=== PATIENT | female | born 2000 | race Caucasian/White ===

== ENCOUNTER 2019-04-02 09:18 | Emergency (ER) | payer BC ==
[2019-04-02 09:56] VITALS: BP 115/74
--- NOTE | 2019-04-02 10:19 | UC ---
Eye Complaint HPI - HPI Summary HPI Summary: Patient is a 18yo female presenting with R eye redness, tearing, and yellow discharge x3 days. Patient states she was seen at [facility] and told "they couldn't do anything and to drink powerade." Patient states she had similar redness in both eyes 3 weeks ago and was diagnosed with viral conjunctivitis, which she states resolves. Notes some itching at times, but no pain. Denies L eye symptoms, but states it is "starting to feel weird." Denies vision changes. Denies contact lens use. Does note sore throat. Denies other URI symptoms. 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 - History of Current Complaint Chief Complaint: UCEye Stated Complaint: RT EYE COMPLAINT Hx Obtained From: Patient Hx Last Menstrual Period: 03/24 Onset/Duration: Sudden Onset, Lasting Days Timing: Constant Pain Intensity: 0 - Allergies/Home Medications Allergies/Adverse Reactions: Allergies Allergy/AdvReac Type Severity Reaction Status Date / Time Penicillins Allergy Hives Verified 04/02/19 09:58 Home Medications: Home Medications Norethindrone-E.estradiol-Iron [Mibelas 24 Fe 1-20 mg-Mcg(24)] 1 chw PO QPM 08/16 [History Confirmed 04/02/19] [facility] [place] Eye Drop 3 drop RIGHT EYE Q2H PRN 04/02/19 [History Confirmed 04/02/19] PMH/Surg Hx/FS Hx/Imm Hx Previously Healthy: Yes - Surgical History Surgical History: Yes Surgery Procedure, Year, and Place: 2017 wisdom teeth - Family History Known Family History: Positive: Non-Contributory - Social History Occupation: Student Lives: Dormitory/Roommates Alcohol Use: Rare Substance Use Type: None Smoking Status (MU): Never Smoked Tobacco Review of Systems All Other Systems Reviewed And Are Negative: Yes Constitutional: Positive: Negative. Negative: Fever, Chills Eyes: Positive: Drainage - R eye yellow discharge, Eye Redness - right. Negative: Blurred Vision, Diplopia, Photophobia ENT: Positive: Sore Throat. Negative: Ear Ache, Nasal Discharge, Sinus Congestion, Sinus Pain/Tenderness Respiratory: Positive: Negative Cardiovascular: Positive: Negative Neurological: Negative: Headache Physical Exam Triage Information Reviewed: Yes Appearance: Well-Appearing, No Pain Distress, Well-Nourished Vital Signs: Initial Vital Signs Temp 97.7 F 04/02/19 09:47 Pulse 116 04/02/19 09:47 Resp 18 04/02/19 09:47 BP 115/74 04/02/19 09:47 Pulse Ox 99 04/02/19 09:47 Lab Results 04/02/19 Range/Units 10:36 Group A Strep Rapid Negative (Negative) Vital Signs Reviewed: Yes Eye Exam: Other - PERRLA. EOM intact Eyes: Positive: Conjunctiva Inflamed - right eye, Discharge - yellow discharge and crusting with matted lashes R eye. excessive tearing R eye ENT: Positive: Hearing grossly normal, Pharyngeal erythema, TMs normal, Uvula midline. Negative: Nasal congestion, Nasal drainage, Tonsillar swelling, Tonsillar exudate, Sinus tenderness Neck exam: Normal Neck: Positive: Supple, Nontender, No Lymphadenopathy Respiratory Exam: Normal Respiratory: Positive: Lungs clear, Normal breath sounds, No respiratory distress Cardiovascular Exam: Normal Cardiovascular: Positive: RRR Neurological: Positive: Alert Psychological: Positive: Age Appropriate Behavior Skin Exam: Normal Eye Complaint Course/Dx - Course Course Of Treatment: Negative rapid strep test. I treated patient with polytrim for bacterial conjunctivitis. Instructed to follow up if symptoms persist. Patient voiced understanding and agreed with treatment plan. - Differential Dx/Diagnosis Provider Diagnosis: Bacterial conjunctivitis of right eye Discharge ED - Sign-Out/Discharge Documenting (check all that apply): Patient Departure All imaging exams completed and their final reports reviewed: No Studies - Discharge Plan Condition: Stable Disposition: HOME Prescriptions: Polymyx/Trimethoprim OPTH* [Polytrim OPHTH*] 2 drop BOTH EYES BID 7 Days #1 btl Patient Education Materials: Conjunctivitis (ED) Referrals: [facility] [Outside] - If Needed Additional Instructions: Place 2 drops in both eyes twice daily for 7 days. Wash hands often and wipe down surfaces at home. Your rapid strep test was negative today. [facility] if symptoms persist. - Billing Disposition and Condition Condition: STABLE Disposition: Home - Attestation Statements Provider Attestation: Per institutional requirements, I have reviewed the chart, however, I was not consulted specifically or made aware of this patient by the midlevel provider. I did not personally evaluate, interact with , or disposition this patient.
== END 2019-04-02 10:52 | disposition home or self-care (01) ==
LOC: UCCORT 09:18
DX: H10.9 Unspecified conjunctivitis (principal); B96.89 Other specified bacterial agents as the cause of diseases classified elsewhere; Z88.0 Allergy status to penicillin
CPT/HCPCS: 87651; 99202; G0463